=== PATIENT | female | born 1970 | race Caucasian/White ===

== ENCOUNTER 2016-07-10 03:33 | Emergency (ER) | payer OTHER ==
[~2016-07-10] VITALS: Ht 149.9 cm; Wt 44.9 kg
[~2016-07-10 03:33] MED LIST: METFORMIN850 MG; NOVOLIN N100 U/ML SUBQ; SYNTHROID0.025 MG PO
[2016-07-10 03:36] VITALS: BP 140/90
--- NOTE | 2016-07-10 03:45 | NUR ---
PT CAME TO ER WITH C/O HEADACHE, LEFT EAR PAIN, RADIATING TO HER ARMS STARTED TODAY AT 2200HOUR.
--- NOTE | 2016-07-10 03:46 | NUR ---
PT TAKEN TO BED 4
--- NOTE | 2016-07-10 03:51 | NUR ---
Dr. Trinh evaluating patient at bedside.
[2016-07-10] MEDS ORDERED: ACETAMINOPHEN EXTRA STRENGTH 500 MG TAB PO ONE (04:00)
[2016-07-10] MEDS ORDERED: SUMAtriptan 50 MG TAB PO ONE (04:00)
[2016-07-10] MEDS ORDERED: IBUPROFEN 800 MG TAB PO ONE (04:00)
--- NOTE | 2016-07-10 05:05 | NUR ---
Patient discharged with v/s stable. Written and verbal after care instructions given and explained. Patient alert, oriented and verbalized understanding of instructions. Ambulatory with steady gait. All questions addressed prior to discharge. ID band removed. Patient advised to follow up with PMD. Rx of SUMATRIPTAN SUCCINATE 100MG PO given. Patient educated on indication of medication including possible reaction and side effects. Opportunity to ask questions provided and answered.
[2016-07-10 05:06] VITALS: BP 144/98
== END 2016-07-10 05:05 | disposition home or self-care (01) ==
LOC: MED 03:33
DX: R51 Headache (principal); E11.9 Type 2 diabetes mellitus without complications; E03.9 Hypothyroidism, unspecified; Z88.6 Allergy status to analgesic agent

== ENCOUNTER 2016-10-03 18:37 | Emergency (ER) | payer OTHER ==
[~2016-10-03] VITALS: Ht 149.9 cm; Wt 48.1 kg
[~2016-10-03 18:37] MED LIST changes: -METFORMIN850 MG; +NOVN SUBQ; -NOVOLIN N100 U/ML SUBQ; +SYN.025 PO; -SYNTHROID0.025 MG PO
[2016-10-03 19:16] VITALS: BP 137/90
--- NOTE | 2016-10-03 19:50 | NUR ---
PT TAKEN TO BED 8
--- NOTE | 2016-10-03 19:55 | NUR ---
46Y F BIB FAMILY C/O nausea, rt eye watery, left eye small in size, lightheaded all day . PT DENIES V/D; SKIN IS PINK/WARM/DRY; AAOX4 WITH EVEN AND STEADY GAIT; LUNGS CLEAR BL; HR EVEN AND REGULAR; PT DENIES ANY FEVER, CP, SOB, OR COUGH AT THIS TIME; PATIENT STATES PAIN OF 0/10 AT THIS TIME; VSS; PATIENT POSITIONED FOR COMFORT; HOB ELEVATED; BEDRAILS UP X2; BED DOWN. ER MD MADE AWARE OF PT STATUS.
--- NOTE | 2016-10-03 20:11 | NUR ---
Dr. Lee evaluating patient at bedside.
[2016-10-03] MEDS ORDERED: DIAZEPAM 5 MG TAB PO ONE (20:25)
[2016-10-03] MEDS ORDERED: ACETAMINOPHEN EXTRA STRENGTH 500 MG TAB PO ONE (20:25)
--- NOTE | 2016-10-03 20:37 | NUR ---
PT TAKEN TO CT
--- NOTE | 2016-10-03 20:47 | NUR ---
PT RETURN FROM CT
[2016-10-03] MEDS ORDERED: VIT D PO (21:10)
[2016-10-03] MEDS ORDERED: SIMV10TA1 PO (21:10)
[2016-10-03] MEDS ORDERED: METF500T PO (21:10)
[2016-10-03] MEDS ORDERED: GLIP10TA3 PO (21:10)
[2016-10-03] MEDS ORDERED: LISI2.5T12 PO (21:10)
[2016-10-03 21:28] VITALS: BP 122/87
--- NOTE | 2016-10-03 21:28 | NUR ---
Patient discharged with v/s stable. Written and verbal after care instructions given and explained. Patient alert, oriented and verbalized understanding of instructions. Ambulatory with steady gait. All questions addressed prior to discharge. ID band removed. Patient advised to follow up with PMD. Rx of VALIUM 5MG given. Patient educated on indication of medication including possible reaction and side effects. Opportunity to ask questions provided and answered.
== END 2016-10-03 21:28 | disposition home or self-care (01) ==
LOC: MED 18:37
DX: M62.838 Other muscle spasm (principal); R51 Headache; E11.9 Type 2 diabetes mellitus without complications; I10 Essential (primary) hypertension; E03.9 Hypothyroidism, unspecified; Z88.8 Allergy status to other drugs, medicaments and biological substances
CPT/HCPCS: 70450; 81025; 99284

== ENCOUNTER 2020-03-23 11:43 | Emergency (ER) | payer MEDICAID, OTHER ==
[~2020-03-23] VITALS: Ht 149.9 cm; Wt 40.4 kg
[~2020-03-23 11:43] MED LIST changes: +GLIP10TA3 PO; +LISI2.5T12 PO; +METF500T PO; -NOVN SUBQ; +SIMV10TA1 PO; -SYN.025 PO; +VIT D PO
[2020-03-23 11:57] VITALS: BP 111/75
[2020-03-23] MEDS ORDERED: KETOROLAC 60 MG/2 ML VIAL IM ONE (12:15)
--- NOTE | 2020-03-23 12:32 | NUR ---
49 Y/O F C/O LOWER L ABDOMINAL PAIN THAT RADIATES TO LOWER L BACK. 8/10 SHARP PAIN THAT WORSENS AT NIGHT. LAST BM WAS YESTERDAY NIGHT, DIARRHEA. DENIES SOB, COUGH, CHEST PAIN OR ANY EXPOSURE TO ANYONE COVID POSITIVE. FEVER AND CHILLS STARTED 8 DAYS AGO WITH PAIN. NO N&V, NO PAIN DURING URINATION. PAIN UPON PALPITATION OF L LOWER BACK AND L ABDOMEN. PMH: THYROID. NKA. URINE WAS COLLECTED, UA AND PREG WAS DONE. DR NOTIFIED OF RESULTS.
--- NOTE | 2020-03-23 12:59 | NUR ---
Patient discharged with v/s stable. Written and verbal after care instructions given and explained. Patient alert, oriented and verbalized understanding of instructions. Ambulatory with steady gait. All questions addressed prior to discharge. ID band removed. Patient advised to follow up with PMD. Rx of MOTRIN AND NORCO given. Patient educated on indication of medication including possible reaction and side effects. Opportunity to ask questions provided and answered.
[2020-03-23 13:00] VITALS: BP 111/75
--- NOTE | 2020-03-25 07:18 | NUR ---
+ covid result received from lab. Copy given to infection control.
== END 2020-03-23 12:59 | disposition home or self-care (01) ==
LOC: MED 11:43
DX: R10.9 Unspecified abdominal pain (principal); Z20.822 Contact with and (suspected) exposure to COVID-19
CPT/HCPCS: 81002; 81025; 96372; 99283; J1885; U0003